=== PATIENT | male | born 2000 | race Two or more races ===

== ENCOUNTER 2019-04-17 08:27 | Emergency (ER) | payer MEDICAID ==
[~2019-04-17] VITALS: Ht 188 cm; Wt 68.0 kg
[2019-04-17 08:47] VITALS: BP 132/81
[2019-04-17] MEDS ORDERED: IBUPROFEN 600 MG TAB PO ONE (09:15)
== END 2019-04-17 09:50 | disposition home or self-care (01) ==
LOC: ER 08:27
DX: S06.0X0A Concussion without loss of consciousness, initial encounter (principal); S39.012A Strain of muscle, fascia and tendon of lower back, initial encounter; V43.52XA Car driver injured in collision with other type car in traffic accident, initial encounter; Y93.89 Activity, other specified; Y99.8 Other external cause status; Y92.410 Unspecified street and highway as the place of occurrence of the external cause
CPT/HCPCS: 70450; 72100

== ENCOUNTER 2019-06-03 11:39 | Emergency (ER) | payer MEDICAID ==
[~2019-06-03] VITALS: Ht 188 cm; Wt 68.0 kg
[2019-06-03 11:44] VITALS: BP 104/64
== END 2019-06-03 17:43 | disposition left against medical advice (07) ==
LOC: ER 11:39
DX: H57.13 Ocular pain, bilateral (principal); Z53.21 Procedure and treatment not carried out due to patient leaving prior to being seen by health care provider